=== PATIENT | male | born 1930 | race Caucasian/White ===

== ENCOUNTER 2016-12-08 08:15 | Inpatient (IN) | payer MEDICARE, BC ==
--- NOTE | 2016-11-14 11:41 | NUR ---
PMH, allergies, meds reviewed and documented. Preop and DOS instructions given including handouts of shower instructions, Guidebook, ortho consent, medications to stop before surgery, Surgical Services pamphlet, and my contact information.
--- NOTE | 2016-11-15 14:00 | NUR ---
JOINT REPLACEMENT PREOP CLASS PATIENT ATTENDED JOINT REPLACEMENT PREOP CLASS. CASE MANAGEMENT CONTACT INFORMATION PROVIDED. EDUCATION WAS PROVIDED REGARDING WHAT TO EXPECT BEFORE, DURING AND AFTER SURGERY. INCLUDING: OVERVIEW OF ANATOMY AND PHYSIOLOGY HOSPITAL TREATMENT SCHEDULE THERAPY DEMONSTRATION CASE MANAGEMENT RESPONSIBILITIES DISCHARGE PLANNING EQUIPMENT NEEDS JOINT REPLACEMENT WORKBOOK ANTI-COAGULATION SURGERY STRONG NUTRITIONAL PROTOCOL DISCHARGE INSTRUCTIONS [facility] PATIENT PORTAL, WITH INSTRUCTIONS CJR AND PREOP SURVERY PREOP BATHING- CHG GIVEN ALL PATIENT'S QUESTIONS ANSWERED TO THEIR SATISFACTION. PATIENTS AND COACHES ENCOURAGED TO CALL WITH ANY ADDITIONAL QUESTIONS OR CONCERNS. CM FOLLOWING FOR TRANSITIONAL CARE PLANNING NEEDS DURING HOSPITALIZATION.
[~2016-12-08] VITALS: Ht 161.3 cm; Wt 66.1 kg
[2016-12-08] VITALS (36 sets, daily range): BP systolic 111–170; BP diastolic 56–87; PULSE 66–91; RESP 10–29; TEMP 96.6–97.7; O2SAT 90–99; Ht 161.3 cm; Wt 66.1 kg
[~2016-12-08 08:15] MED LIST: ACETAMINOPHEN 500 MG TABLET PO ONE; DEXAMETHASONE 4mg/ml - 1ml INJECTION IV ONE; FAMOTIDINE 20mg IVPB 50 ML IV ONE; LIDOCAINE 1% (10mg/ml) 2ml SDV SQ ONE; LR 1,000 ML IV SCH; METOCLOPRAMIDE 10mg/2ml INJECTION IV ONE; NOZIN NASAL SWAB NS ONE; ONDANSETRON 4mg/2ml INJECTION IV ONE; SENN-125 PO
[2016-12-08 08:50] LABS: BASOPHILS % (AUTO) 0.2 % (0-2); EOSINOPHILS # (AUTO) 0.1 T/MM3 (0-0.5); HCT - HEMATOCRIT 43.5 % (41-53); HGB - HEMOGLOBIN 13.8 GM/DL (13.5-17.5); IMMATURE GRANULOCYTE # (AUTO) 0.02 T/MM3 (0.00-0.03); IMMATURE GRANULOCYTE % (AUTO) 0.2 % (0.0-0.5); LYMPHOCYTES % (AUTO) 9.7 % (23-45); MEAN CORPUSCULAR HGB 28.4 UUG (26-34); MEAN CORPUSCULAR HGB CONC(MCHC 31.7 GM/DL (31-37); MEAN CORPUSCULAR VOLUME 89.5 UM3 (80-100); MEAN PLATELET VOLUME 9.3 UM3 (9.4-12.4); MONOCYTES # (AUTO) 0.5 T/MM3 (0-0.8); MONOCYTES % (AUTO) 5.2 % (0-9.0); NEUTROPHILS #(AUTO)-ABSOLUTE 8.7 T/MM3 (1.8-7.7); NEUTROPHILS % (AUTO) 83.7 % (33-66); RED BLOOD COUNT 4.86 M/MM3 (4.50-5.90); WBC - WHITE BLOOD COUNT 10.4 T/MM3 (4.5-11.0)
[2016-12-08] MEDS ORDERED: ACET-3088 PO (08:50)
--- NOTE | 2016-12-08 09:52 | ANESPREOP ---
Anesthesia Record Date and Time DATE: 12/08/16 TIME: 09:50 Proposed Surgical Procedure RT TKA NPO since: mn Allergies: Coded Allergies: ibuprofen (Verified Allergy, Mild, ITCH, 12/08/16) Ht/Wt/BMI Height: 5 ' 3.50 " Weight: 66.100 kg BMI: 25.4 kg/m2 Vital Signs Date Time Temp Pulse Resp B/P Pulse Ox O2 Delivery O2 Flow Rate FiO2 12/08/16 08:42 97.7 75 16 153/77 95 Room Air Medications Inpatient Medications Current Medications Medications (Trade) Dose Ordered Sig/Yevgeniy Start Time Stop Time Status Last Admin Dose Admin Lactated Ringer's (Lactated Ringers) 1,000 ml @ 50 mls/hr Q20H 12/08/16 06:00 12/08/16 09:22 50 MLS/HR Acetaminophen (Tylenol Arthritis) 650 Mg Tablet.er, 1 TAB PO for PAIN, (Reported ) Last Taken: on 12/06/16 Sennosides/Docusate Sodium (Stool Softener Tablet) 1 Each Tablet, 1-2 TAB PO DAILY, (Reported) Last Taken: on 12/07/16 Currently on Beta Sanjuana: No Medical/Surgical History Anesthesia PMH: Reports: *Hypertension (UNTREATED), Anesthesia Reactions ( REQUESTS NO SPINAL), Arthritis, Back Problems (history of back fusion) Smoking Status: Never smoker Use Chewing Tobacco?: No Second Hand Exposure: No Substance Use Type: does not use Past Surgical History Orthopedic Surgeries: Yes - ORIF LT FEMUR; ORIF LT ANKLE, RCR LT SHOULDER, RT ANGELINA, ORIF LT ELBOW X2 Abdominal Surgeries: Yes - HERNIA Genitourinary Surgeries: Cardiac Surgeries: Endocrine Surgeries: Reproductive Surgeries: Neurological Surgeries: Yes - CTR X3; BACK X2 (FUSION) Ear Surgeries: Nose Surgeries: Throat Surgeries: Yes - EGD Other Surgeries: Yes - ATTEMPTED REMOVAL ELBOW HARDWARE; LT TKA, LT HIP, LT ANGELINA REV Anesthesia Adverse Reactions: FOUND none Pertinent Findings Laboratory Tests 12/08/16 08:39 EKG Rhythm: Sinus Rhythm Physical Exam Respiratory: Lungs clear Cardiovascular: FOUND Regular rate, rhythm Airway Assessment Mallampati Score: II TMD: 3 Fingerbreadths Neck Extension: Fair Teeth: Upper Dentures, Lower Dentures Overall Assessment: No Airway Concerns ASA: 2 Plan Anesthesia Plan: LMA, GETA Peripheral Nerve Block: Saphenous - RT Discussion Discussed risks/options/alternatives of anesthesia and questions answered. Patient consents. Nursing pain assessment noted. Present: Family Member Attestation Statement Prior to the delivery of any anesthetic medication, I examined the patient, developed the plan, obtained the patient's consent and discussed the risk and benefits of the procedure with the patient/guardian. NOLAN MCKINNON WAX SPECIALIST December 08, 2016 09:52
[2016-12-08] MEDS ORDERED: PROPOFOL 200mg 200 MG, ESMOLOL 50 MG, KETAMINE 50 MG, LIDOCAINE 2% 100 MG, DEXMEDETOMID... IV ONE ×6 (10:00)
[2016-12-08] MEDS ORDERED: ROPIVACAINE 0.5% (5mg/ml) 30ml INJ ONE (10:01)
[2016-12-08] MEDS ORDERED: PROPOFOL 200mg 20 ML IV ONE (10:01)
[2016-12-08] MEDS ORDERED: MIDAZOLAM 2mg/2ml INJECTION IV ONE (10:15)
--- NOTE | 2016-12-08 10:21 | ANESPD ---
Peripheral Nerve Blockade Physician: Dom Holm MD Date: 12/08/16 Surgical Procedure: right TKA Discussion Discussed risks/options/alternatives of anesthesia and questions answered. Patient consents. Nursing pain assessment noted. Block Start: 10:10 Block Stop: 10:15 Block Employed: Adductor Canal, Single Injection Indication: post-operative pain Approach: right side confirmed Position: supine Monitors: EKG, SpO2, NIBP IV Sedation: Yes Sedation: sedate w/meaningful contact Midazolam (mg): 2 Initial Vital Signs First Documented Vital Signs Date Time Temp Pulse Resp B/P Pulse Ox O2 Delivery O2 Flow Rate FiO2 12/08/16 08:42 97.7 75 16 153/77 95 Room Air Post Vital Signs Vital Signs Date Time Temp Pulse Resp B/P Pulse Ox O2 Delivery O2 Flow Rate FiO2 12/08/16 10:09 18 12/08/16 08:42 97.7 75 153/77 95 Room Air Prep: chlorhexadine/ETOH, sterile technique Ultrasound Used?: Yes Nerve Simulator Muscle Response: No Parathesia/Pain: none Injectate Ropivacaine (%): 0.5 Ropivacaine (mL): 15 Was Epi 1:200,000 Used?: No Injection Injection made incrementally with constant monitoring and aspiration every [5] ml. NOLAN MCKINNON CRNA December 08, 2016 10:21
[2016-12-08] MEDS ORDERED: VANCOMYCIN 1 GRAM INJECTION ONE (10:22)
[2016-12-08] MEDS ORDERED: FENTANYL 250mcg/5ml INJECTION ONE (10:41)
[2016-12-08] MEDS ORDERED: EPHEDRINE SULFATE 50mg/ml INJECTION ONE (10:51)
[2016-12-08] MEDS ORDERED: TRANEXAMIC ACID 1,000 MG in NORMAL SALINE 100 ML IV ONE ×2 (11:30→12:30)
[2016-12-08] MEDS ORDERED: CEFAZOLIN 2 GM VIAL IV ONE (11:30)
[2016-12-08] MEDS ORDERED: HYDROMORPHONE 2mg/ml INJECTION ONE (11:43)
[2016-12-08] MEDS ORDERED: EPINEPHRINE 0.25 MG, BUPIVACAINE 0.25% 75 MG, MORPHINE SULFATE 15 MG in NORMAL SALINE 3... INJ ONE (12:30)
--- NOTE | 2016-12-08 12:30 | PDOPERATE ---
Operative Report Date of Operation 12/08/16 Side: Right Preoperative Diagnosis: knee primary DJD Postoperative Diagnosis Same as preoperative diagnosis. Operation/Procedure: total knee arthroplasty (right) Surgeon Jannet Holm MD Core Winder Machine Operator IZABEL Barney Complications None. Anesthesia Plan: GETA Estimated Blood Loss See Anesthesia Record. Fluids Please See Anesthesia Record. Description of Operation Mr. Marie and his right knee were identified and marked in the the preoperative holding area. He was then brought back to the operating suite and proper anesthesia was administered. He was then positioned supine on the operating table. The right lower extremity was then prepped and draped in my normal sterile fashion. Timeout was performed with all operating room personnel. A standard anterior incision followed by a medial parapatellar approach was utilized. He had severe disease in both medial and lateral compartments but more severe in the medial compartment. A large osteophytes around the patella as well. A distal femoral cut was made in 5 of valgus using intramedullary guide. The femur was sized at a 4 and rotation set using the epicondylar axis. Distal femoral cuts were performed. A proximal tibial cut was made using extramedullary guide. Remaining osteophytes and meniscus were removed. He had insufficiency of his MCL. MCL was palpable and not injured. At this point decided to switch to a PS and the PS box was cut. Trial components were placed with a 9 mm spacer. This allowed for full range of motion and the patella tracked well. The knee was stable throughout range of motion. The patella was resurfaced with the knee in extension to a size 32. The tibia rotation was then marked and the tibia stamped at the proper rotation at a size 3. The tourniquet was inflated 250 mmHg. The bone was prepared for cementing and all components cemented into place and allowed to cure in extension. Betadine solution was used for 3 minutes during the curing period and then fully irrigated out with 1 L of normal saline. The tourniquet was deflated and hemostasis obtained with electrocautery. After the cement had cured the knee was taken through range of motion check for balance and stability which were good. Vancomycin powder was placed into the wound. The arthrotomy was closed with #1 Vicryl. The remainder of the wound was then closed by my tiler's assistant utilizing 2-0 vycral in the subcutaneous tissue. 4-0 monocryl was used in the subcuticular layer followed by dermabond and a sterile dressing. After closure the patient will be transferred to the recovery room under the care of anesthesia. ROSELINE HOLM MD December 08, 2016 12:30
[2016-12-08] MEDS ORDERED: DESFLURANE 240 ML LIQUID IH ONE (12:34)
[2016-12-08] MEDS ORDERED: SEVOFLURANE 250 ML LIQUID IH ONE (12:38)
[2016-12-08] MEDS ORDERED: HYDROMORPHONE 2mg/ml INJECTION IV PRN (12:45)
[2016-12-08] MEDS ORDERED: ONDANSETRON 4mg/2ml INJECTION IV PRN (12:45)
[2016-12-08] MEDS ORDERED: NORMAL SALINE 1,000 ML IV SCH (12:47)
--- NOTE | 2016-12-08 12:47 | PDHPBRIEF ---
History and Physical Update Date DATE: 12/08/16 TIME: 12:46 I evaluated this patient and found no changes in the history and clinical exam findings. The recommendations and treatment plan is also unchanged from the previous documentation. JA HUFF December 08, 2016 12:47
[2016-12-08] MEDS ORDERED: PRN ORDERS MC (13:00)
[2016-12-08] MEDS ORDERED: DiphenhydrAMINE 25 MG CAPSULE PO PRN (13:00)
[2016-12-08] MEDS ORDERED: DiphenhydrAMINE 50 MG/ML INJECTION IV PRN (13:00)
[2016-12-08] MEDS ORDERED: LORAZEPAM 1 MG TABLET PO PRN (13:00)
[2016-12-08] MEDS ORDERED: NOZIN NASAL SWAB NS ONE (13:00)
[2016-12-08] MEDS ORDERED: SENNOSIDES 8.6 MG TABLET PO PRN (13:00)
--- NOTE | 2016-12-08 13:32 | DI ---
Indication: ITS.REASON: POSTOP right knee replacement PROCEDURE: KNEE RIGHT 2 VIEW: Encounter: Initial Comparison: November 09, 2015 Findings: Postoperative changes of right total knee replacement are seen. There is expected postoperative subcutaneous gas. No evidence of hardware failure or acute fracture. No retained radiopaque surgical instruments or sponges. Overlying material causing artifact. Impression: New right total knee prosthesis without evidence of immediate complication. .
--- NOTE | 2016-12-08 13:51 | ANESPO ---
Post-Op Note Date 12/08/16 Time: 13:50 Status Pt Participated in Evaluation: Pt participated in person Vital Signs Date Time Temp Pulse Resp B/P Pulse Ox O2 Delivery O2 Flow Rate FiO2 12/08/16 13:45 79 16 139/67 97 Nasal Cannula 2.00 12/08/16 12:57 97.5 Respiratory Function: Airway patent, Regular respirations Cardiovascular Function: Regular pulse Mental Status: Alert/oriented Pain Level Intensity: 0 Unable to Assess Pain Due To: Medicated/Sleeping Hydration: IV infusing Complications during Recovery None apparent Follow-Up Instructions Instructions Per Surgeon NOLAN MCKINNON CRNA December 08, 2016 13:50
[2016-12-08] MEDS: NOZIN NASAL SWAB NS SCH ×2 (14:07→20:43)
[2016-12-08] MEDS: ACETAMINOPHEN 325 MG TABLET PO SCH ×3 (14:09→22:14)
--- NOTE | 2016-12-08 14:30 | NUR ---
ADMISSION PT ADMITTED TO ROOM 123 VIA CART FROM OR AT 1415. PT A&OX3, IS AT BEDSIDE. PT ORIENTED TO BED AND ROOM. POST OP VITALS WNL, 1L O2 NC . PT DENIES PAIN AND N/V AT THIS TIME. ALARMS IN USE AND CALL LIGHT WITH IN REACH, DRESSING IS C/D/I/.
[2016-12-08] MEDS: ONDANSETRON 4mg/2ml INJECTION IV PRN ×2 (14:37→22:50)
--- NOTE | 2016-12-08 14:37 | NUR ---
NAUSEA PT HAD DENIED NAUSEA UP UNTIL 1435. PT DID SPIT UP SMALL AMOUNT, PRN ZOFRAN GIVEN.
--- NOTE | 2016-12-08 14:48 | NUR ---
CM CM IN TO VISIT WITH PT. HE IS GROGGY FROM SURGERY BUT ORIENTED AND ANSWERS QUESTION APPROPRIATELY. HIS IS PRESENT. PT PLANS TO DC TO SNF AT [facility]. REFERRAL CALLED TO MIKY AT [facility]. PORTAL IS OPENED. PT IS GIVEN CM CONTACT INFORMATION. MITZIE SCORE IS 6. Addendum: 12/08/16 at 1454 by LIT EDMOND RN Amended: Links added.
--- NOTE | 2016-12-08 15:00 | NUR ---
CM PER PHONE CONVERSATION WITH MIKY FROM [facility], THEY CAN ACCEPT PT FOR SNF. MIKY IS MADE AWARE THAT DC IS POSSIBLE TOMORROW.
[2016-12-08] MEDS ORDERED: SCOPOLAMINE 1.5 MG PATCH TD SCH (17:15)
[2016-12-08] MEDS ORDERED: PROMETHAZINE 25 MG INJECTION IM PRN (17:15)
--- NOTE | 2016-12-08 18:29 | NUR ---
SHIFT PT HAS BEEN PLEASANT AND COOPERATIVE ALL SHIFT. PT IS A&OX3, UP WITH ONE ASSIST, GAIT BELT AND WALKER. PT REPORTS NAUSEA/ VOMITING, PRN ZOFRAN GIVEN AND SCOPOLAMINE PATCH ORDERED AND APPLIED. PT DENIES PAIN AND SOA AT THIS TIME. PT IS ON 1L O2 NC. PT IS UP TO RECLINER BUT IS NOT TOLERATING CLEAR LIQUIDS SO MINIMAL GIVEN. IS AT BEDSIDE, POLAR PACK IS APPLIED TO KNEE, DRESSING IS C/D/I. NO OTHER CHANGES. ALARMS IN USE AND CALL LIGHT WITH IN REACH.
[2016-12-08] MEDS: CEFAZOLIN 2 G in NORMAL SALINE 100 ML IV SCH (19:01)
[2016-12-08] MEDS ORDERED: SENNOSIDES 8.6 MG TABLET PO SCH (22:00)
[2016-12-08] MEDS: ASPIRIN *EC* 325mg TABLET PO SCH (22:14)
[2016-12-09] VITALS (11 sets, daily range): BP systolic 113–162; BP diastolic 62–68; PULSE 64–82; RESP 14–18; TEMP 96.5–98.4; O2SAT 92–96
[2016-12-09] MEDS: OXYCODONE I.R. 5 MG TABLET PO PRN ×2 (02:56→09:56)
[2016-12-09] MEDS: CEFAZOLIN 2 G in NORMAL SALINE 100 ML IV SCH (03:46)
[2016-12-09 05:50] LABS: HCT - HEMATOCRIT 31.8 % (41-53); HGB - HEMOGLOBIN 10.2 GM/DL (13.5-17.5); MEAN CORPUSCULAR HGB 28.4 UUG (26-34); MEAN CORPUSCULAR HGB CONC(MCHC 32.1 GM/DL (31-37); MEAN CORPUSCULAR VOLUME 88.6 UM3 (80-100); RED BLOOD COUNT 3.59 M/MM3 (4.50-5.90); WBC - WHITE BLOOD COUNT 11.1 T/MM3 (4.5-11.0)
[2016-12-09 06:01] LABS: ANION GAP 9 MEQ/L (5-15); BUN/CREATININE RATIO 40 RATIO (6-26); CALCIUM 8.1 MG/DL (8.4-10.2); CHLORIDE 106 MEQ/L (98-107); CO2 - CARBON DIOXIDE 26 MEQ/L (22-30); CREATININE 0.6 MG/DL (0.8-1.5); GLOMERULAR FILTRATION RATE 128; GLUCOSE 111 MG/DL (75-110); POTASSIUM 4.4 MEQ/L (3.6-5); SODIUM 141 MEQ/L (134-144)
[2016-12-09] MEDS: NOZIN NASAL SWAB NS SCH (06:52)
--- NOTE | 2016-12-09 08:42 | NUR ---
CM CM IN TO VISIT WITH PT. HE IS ALERT AND ORIENTED. HE IS MADE AWARE THAT [facility] CAN PROVIDE HIS SNF SERVICES POST DC. HE CONFIRMS THAT IT IS HIS WISH TO DC TO [facility] FOR SNF. CM EXPLAINS HER ROLE IN TRANSITION OF CARE. PT WOULD LIKE [facility] TO TRANSPORT. HE IS REASSURED THAT CM WILL MAKE ARRANGEMENTS UPON DC. Addendum: 12/09/16 at 0843 by LIT EDMOND RN Amended: Links added.
[2016-12-09] MEDS ORDERED: POLYETHYL.GLYCOL 3350 PACKET 17gm PO SCH (09:00)
[2016-12-09] MEDS ORDERED: DOCUSATE SODIUM 100 MG CAPSULE PO SCH (09:00)
[2016-12-09] MEDS: ASPIRIN *EC* 325mg TABLET PO SCH (09:55)
[2016-12-09] MEDS: ACETAMINOPHEN 325 MG TABLET PO SCH (09:56)
--- NOTE | 2016-12-09 10:29 | PDOCECFAO ---
Admission Orders Admission Orders Admit to: Fdc Allergies: Coded Allergies: ibuprofen (Verified Allergy, Mild, ITCH, 12/08/16) Admitting Diagnosis Right Total Knee Admitting Physician Roseline Holm MD Code Status Full Code Anticipated LOS: 30 days or less Rehab Potential: Good Rehab Prognosis: Good Diet: Regular May use Facility Protocol /SO: Yes May Have Flu Vaccine: Yes Evaluations/Treat: PT, OT [facility]dc Certification I certify that SNF services are required to be given on an Inpatient basis because of the patients need for retirement care on a continuing basis for the condition(s) for which he/she received inpatient hospital services prior to his/her transfer to the SNF. SNF inpatient care is necessary for the following reasons Postop Assessment Care Cardiac or Respiratory Arrest In Event of Arrest: Start CPR,call 911,to ER Resident is Aware of Diagnosis: Yes ROSELINE HOLM MD December 09, 2016 10:29
--- NOTE | 2016-12-09 11:18 | PDOCECFAO ---
Admission Orders Admission Orders Admit to: Long Term Allergies: Coded Allergies: ibuprofen (Verified Allergy, Mild, ITCH, 12/08/16) Admitting Diagnosis Right Total Knee Admitting Physician Dom Holm MD Code Status Full Code Anticipated LOS: 30 days or less Rehab Potential: Good Rehab Prognosis: Good Diet: Regular Wound/Incision Care: Keep dressing in place. Do not remove. Call Dr Holm for wound concerns. Keep dressing dry May use Facility Protocol /SO: Yes May Have Flu Vaccine: Yes Evaluations/Treat: PT, OT Long Term Certification I certify that SNF services are required to be given on an Inpatient basis because of the patients need for prison care on a continuing basis for the condition(s) for which he/she received inpatient hospital services prior to his/her transfer to the SNF. SNF inpatient care is necessary for the following reasons Postop Assessment Care Cardiac or Respiratory Arrest In Event of Arrest: Start CPR,call 911,to ER Resident is Aware of Diagnosis: Yes Additional Orders: PT OT Eval and tx. WBAT, ROM, exercises, strengthening, etc.... F/U with Dr Holm in 3 weeks. Dressing can be removed after 2 weeks post op. ICE with polar scot. Keep a towel between the skin and ice pack. Elevate to control swelling. Encourage I.S. every 4 hrs while awake. Remove the scopolamine patch on 12/11/16. JA HUFF December 09, 2016 11:18
[2016-12-09] MEDS ORDERED: MAGN400O4 PO (11:21)
[2016-12-09] MEDS ORDERED: DOCU-168 PO (11:21)
[2016-12-09] MEDS ORDERED: ASPI-917 PO (11:21)
[2016-12-09] MEDS ORDERED: ACET-2321 PO (11:21)
[2016-12-09] MEDS ORDERED: SENN-156 PO (11:21)
[2016-12-09] MEDS ORDERED: OXYC5TAB84 PO (11:21)
[2016-12-09] MEDS ORDERED: POLY17PO18 PO (11:21)
--- NOTE | 2016-12-09 11:25 | DSPDOC ---
General Date Date DATE: 12/09/16 TIME: 11:22 Attending Physician Dom Holm MD Admitting Physician Dom Holm MD Consulting Physician Thierry Toro Admitting Diagnosis PRIMARY DEGENERATIVE JOINT DISEASE RIGHT KNEE Discharge Diagnosis Primary DJD right knee Procedures Rt total knee arthroplasty History of Present Illness HPI Elements This patient was admitted for elective surgical tx of end stage degenerative joint disease that failed to respond to conservative treatment. Further details of this is found in the admission H&P. Hospital Course After appropriate preoperative clearance and signing of operative consent, the patient was given IV antibiotics, according to orthopedic protocol. The patient was taken to the operating room and underwent elective right total knee arthroplasty. Following surgery, antibiotics were discontinued less than 24 hours according to joint protocol. Aspirin was initiated and SCDs added for DVT prevention. The dressing was clean, dry, and intact. Pain control was obtained via multimodal approach. He developed some post op nausea which improved with scopolamine patch. Bowel motivation addressed with scheduled and PRN medications. Early mobilization was initiated through PT services. Discharge arrangements made by a collaborative effort between the patient and Case Management. Joby is going to [facility] for additional rehab. Follow-up is scheduled in 2-3 weeks. Discharge instructions given by orthopedic providers and nursing staff at discharge. Discharge condition was good. Problems: Ongoing Care Required?: No Laboratory Laboratory Tests Test 12/09/16 04:18 White Blood Count 11.1T/MM3 Red Blood Count 3.59M/MM3 Hemoglobin 10.2GM/DL Hematocrit 31.8% Mean Corpuscular Volume 88.6UM3 Mean Corpuscular Hemoglobin 28.4UUG Mean Corpuscular Hemoglobin Concent 32.1GM/DL RDW Standard Deviation 43.0FL Platelet Count 257T/MM3 Mean Platelet Volume 10.0UM3 Turbidity < 20 Sodium Level 141MEQ/L Potassium Level 4.4MEQ/L Chloride Level 106MEQ/L Carbon Dioxide Level 26MEQ/L Anion Gap 9MEQ/L Blood Urea Nitrogen 24.0MG/DL Creatinine 0.6MG/DL Glomerular Filtration Rate Calc 128 BUN/Creatinine Ratio 40RATIO Glucose Level 111MG/DL Calculated Osmolality 276MOSM/KG Calcium Level 8.1MG/DL Icterus Index < 2 Chemistry Specimen Hemolysis < 15 Home Meds Active Scripts Sennosides (Senna) 8.6 Mg Tablet, 17.2 MG PO DAILY Y for CONSTIPATION for 5 Days , #10 TAB Prov:JA HUFF 12/09/16 Polyethylene Glycol 3350 (Healthylax) 17 Gm Powd.pack, 17 G PO DAILY for 30 Days Prov:JA HUFF 12/09/16 Magnesium Hydroxide (Milk of Magnesia) 400 Mg/5 Ml Oral.susp, 30 ML PO 0800 for 14 Days Prov:JA HUFF 12/09/16 Docusate Sodium (Colace) 100 Mg Capsule, 100 MG PO BID, #60 CAP Prov:JA HUFF 12/09/16 Oxycodone HCl (Oxycodone HCl) 5 Mg Tablet, 5-15 MG PO Q3H Y for BREAKTHROUGH PAIN, #60 TAB Prov:JA HUFF 12/09/16 Aspirin *EC* (Aspirin EC) 325 Mg Tablet.dr, 325 MG PO BID, #84 TAB Take this for 6 weeks to prevent blood clots. Prov:JA HUFF 12/09/16 Acetaminophen (Tylenol) 325 Mg Tablet, 650 MG PO QID, #60 TAB Prov:JA HUFF 12/09/16 Reported Medications Sennosides/Docusate Sodium (Stool Softener Tablet) 1 Each Tablet, 1-2 TAB PO DAILY 11/14/16 Discontinued Reported Medications Acetaminophen (Tylenol Arthritis) 650 Mg Tablet.er, 1 TAB PO Y for PAIN, TAB 12/08/16 Discharge Disposition Please refer to Case Management Notes for patient's disposition. Estimated Blood Loss 100.0 JA HUFF December 09, 2016 11:25
--- NOTE | 2016-12-09 11:33 | PDORTHOPN ---
Subjective Date DATE: 12/09/16 TIME: 11:30 Subjective Joby is doing well. Nausea improved with the patch. He ate breakfast without problems. Mobility is a little slow and he is planning on going to [facility] at discharge. No other reported problems. Objective Vital Signs Vital signs Vital Signs 12/08/16 12/09/16 12/09/16 12/09/16 23:47 00:01 01:19 02:00 Temp 97.5 96.5 Pulse 64 53 68 Resp 14 16 B/P 123/65 140/66 Pulse Ox 95 96 95 93 O2 Delivery Room Air Room Air Room Air Room Air 12/09/16 12/09/16 12/09/16 12/09/16 03:23 04:04 05:16 08:16 Temp 97.8 Pulse 56 64 82 Resp 16 B/P 113/62 Pulse Ox 94 93 92 95 O2 Delivery Room Air Room Air Room Air Room Air 12/09/16 12/09/16 12/09/16 08:31 08:31 10:10 Temp 98.4 98.4 Pulse 69 82 69 Resp 16 16 16 B/P 117/62 117/62 Pulse Ox 93 93 O2 Delivery Room Air Room Air Height (Feet): 5 Height (Inches): 3.50 Weight (Kilograms): 66.100 General General Appearance: No Acute Distress Respiratory (Brief) Respiratory Brief: FOUND: non-labored Cardiovascular (Brief) Cardiac: FOUND: calf easily compressible, calf soft, nontender, pedal pulses intact Surgical Site Incision: FOUND: Mepilex dressing intact, no drainage Neurologic (Brief) Neurological Brief: FOUND: extremities w/o deficits, neuro intact Psychiatric (Brief) Psychiatric Brief: FOUND: alert, no acute distress Laboratory Laboratory Laboratory Tests 12/08/16 08:39 12/09/16 04:18 Laboratory Tests 12/09/16 04:18 Assessment & Plan Problems: (1) Degenerative arthritis of right knee Status: Chronic Qualifiers: Osteoarthritis type: primary Qualified Codes: M17.11 - Unilateral primary osteoarthritis, right knee Assessment & Plan: Current anti-coagulation protocol for VTE prophylaxis. Hx of GI bleed. Will watch for recurrent sx on Aspirin. SCD's. PT/OT services to improve independent function. Discharge Planning per Case Management. Pt going to [facility] at discharge. Will need to remove the patch on 5/28. Hospital Course Summary Disclaimer The visit summary below is not to be considered part of the above Progress Note. Hospital Course After appropriate preoperative clearance and signing of operative consent, the patient was given IV antibiotics, according to orthopedic protocol. The patient was taken to the operating room and underwent elective right total knee arthroplasty. Following surgery, antibiotics were discontinued less than 24 hours according to joint protocol. Aspirin was initiated and SCDs added for DVT prevention. The dressing was clean, dry, and intact. Pain control was obtained via multimodal approach. He developed some post op nausea which improved with scopolamine patch. Bowel motivation addressed with scheduled and PRN medications. Early mobilization was initiated through PT services. Discharge arrangements made by a collaborative effort between the patient and Case Management. Joby is going to [facility]'s SNU for additional rehab. Follow-up is scheduled in 2-3 weeks. Discharge instructions given by orthopedic providers and nursing staff at discharge. Discharge condition was good. JA HUFF December 09, 2016 11:32
--- NOTE | 2016-12-09 12:43 | NUR ---
CM TIME OUT COMPLETED WITH MICHAEL RAMÍREZ. ORDERS FAXED TO [facility].
--- NOTE | 2016-12-09 12:51 | NUR ---
CM PER PHONE CONVERSATION WITH MIKY AT [facility], THEY WILL TRANSPORT PT AT 1330. MICHAEL FINK IS MADE AWARE.
--- NOTE | 2016-12-09 13:40 | NUR ---
DISCHARGE NURSING NOTE THE PT IS ALERT AND ORIENTED X3. VITAL SIGNS STABLE, PT ON RA. THIS RN CALLED REPORT TO MICHAEL KING AT [facility]. THE PT PACKET WAS SENT WITH TRANSPORTATION. PT WAS TAKEN VIA WHEELCHAIR BY [facility] TRANSPORTATION. NO CONCERNS NOTED AT TIME OF TRANSFER. ALL PT BELONGINGS SENT WITH PT AT THIS TIME.
[2016-12-10] MEDS ORDERED: MILK OF MAGNESIA 30 ML SUSP PO SCH (08:00)
[2016-12-10] MEDS ORDERED: BISACODYL 10 MG SUPPOSITORY RECTALLY SCH (20:00)
[2016-12-11] MEDS ORDERED: SCOPOLAMINE PATCH REMOVAL TD SCH (17:00)
--- NOTE | 2016-12-13 13:36 | NUR ---
ATTEMPTED POST HOSPITAL FOLLOW UP PHONE CALL #1 TO [facility], NO ANSWER WITH NURSING, LEFT MESSAGE TO RETURN CALL TO CM.
== END 2016-12-09 13:40 | DRG 470 ==
LOC: SRG 08:15
PROVIDERS: ADMIT Orthopaedic Surgery; ATTEND Orthopaedic Surgery
PROC: 0SRC0J9 Replacement of Right Knee Joint with Synthetic Substitute, Cemented, Open Approach (ICD-10-PCS; principal; 2016-12-08 11:08)
DX: M17.11 Unilateral primary osteoarthritis, right knee (principal); Z96.652 Presence of left artificial knee joint; Z96.641 Presence of right artificial hip joint; D64.9 Anemia, unspecified; K21.9 Gastro-esophageal reflux disease without esophagitis
CPT/HCPCS: 36415; 80048; 85025; 85027; 94762